=== PATIENT | female | born 1970 | race Caucasian/White ===

== ENCOUNTER 2018-09-14 09:02 | Outpatient (CLI) | payer OTHER ==
--- NOTE | 2018-09-14 10:59 | ULT ---
ULTRASOUND ABDOMEN: Date: 09/14/18 HISTORY: Abdominal pain. Fullness. COMPARISON: None. TECHNIQUE: Real-time Elaine scale and color evaluation of the abdomen performed. FINDINGS: Visualized portion of the aorta and IVC are unremarkable. Liver measures 14.7 cm in length. Spleen me asures 8.0 cm in length. Gallbladder wall thickness is normal. Sonographic Gerard's sign is negative. Common bile duct measures 4.0 mm. The pancreas, aorta, and IVC are unremarkable. Right kidney measures 10.1 x 4.9 x 6.0 cm. Left kidney measures 10.8 x 5.8 x 5.9 cm. No renal mass, h ydronephrosis, or abnormal calcifications. IMPRESSION: Unremarkable examination of the abdomen. POS: JANET
== END 2018-09-14 09:03 | disposition home or self-care (01) ==
LOC: SCSULT 09:02
PROVIDERS: ATTEND Internal Medicine Gastroenterology
DX: K21.9 Gastro-esophageal reflux disease without esophagitis (principal); R14.0 Abdominal distension (gaseous); F45.8 Other somatoform disorders
CPT/HCPCS: 76700

== ENCOUNTER 2020-09-12 17:30 | Outpatient (CLI) | payer OTHER | END 2020-09-12 17:31 | disposition home or self-care (01) | LOC: SLEEPLAB 17:30 | PROVIDERS: ATTEND Family Medicine | DX: G47.33 Obstructive sleep apnea (adult) (pediatric) (principal); G47.10 Hypersomnia, unspecified; R40.0 Somnolence; R53.83 Other fatigue; G31.84 Mild cognitive impairment of uncertain or unknown etiology; R06.83 Snoring; G47.00 Insomnia, unspecified | CPT/HCPCS: 95806 ==

== ENCOUNTER 2021-05-31 15:43 | Outpatient (CLI) | payer OTHER | END 2021-05-31 15:44 | disposition home or self-care (01) | LOC: BICRAD 15:43 | PROVIDERS: ATTEND Family Medicine | DX: M40.03 Postural kyphosis, cervicothoracic region (principal); M47.812 Spondylosis without myelopathy or radiculopathy, cervical region | CPT/HCPCS: 72040; 72072 ==